=== PATIENT | female | born 1960 | race Caucasian/White ===

== ENCOUNTER → 2016-06-10 | Outpatient (CLI) | payer OTHER, BC ==
--- NOTE | 2016-06-10 19:55 | MR ---
EXAM DATE: 06/10/16 PATIENT'S AGE: 56 Patient: MARK SETH Facility: [place], [place] : 1960 Study: MRI Knee Left [id number]/10/2017 10:54:32 AM Ordering Physician: Carlyle Frost Final Report: HISTORY: Left knee pain. Technique: Axial, sagittal and coronal T1, proton density and proton density fat-saturated images were obtained of the left knee without contrast administration. Comparison: Radiographs 06/10/2016. Findings: Medial compartment: Medial meniscus: There is mild intrameniscal degeneration of the medial meniscal body and medial aspect of the posterior horn of meniscus without a discrete area of meniscal tearing. Articular cartilage: Mild marginal osteophyte formation. There is moderate to high-grade cartilage wear of the junction of the central and posterior aspects of the medial femoral condyle (grade 2-3). Mild cartilage wear of the medial tibial plateau (grade 2). . Lateral compartment: Lateral meniscus: There is mild intrameniscal degeneration of the lateral meniscus. The posterior horn of the lateral meniscus closer to the root of the meniscus may be frayed though that portion of the meniscus is difficult to evaluate by MRI as it is prone to magic-angle phenomenon artifact. Articular cartilage: Marginal osteophyte formation. High-grade partial to full- thickness cartilage wear involving the central posterior aspect of the lateral femoral condyle (grade 3-4). High-grade partial to full-thickness cartilage wear of the lateral tibial plateau with subchondral marrow edema (grade 3-4). . Patellofemoral compartment: Trochlear articular cartilage is maintained. Mild chondromalacia of the patellar articular surface (grade 2). . Ligaments: There is increased signal within and mild irregularity of the anterior cruciate ligament compatible with a low-grade sprain of the ligament. The posterior cruciate ligament is intact. Medial collateral ligament and lateral collateral ligamentous complex are maintained. . Extensor mechanism: The distal quadriceps tendon and patellar tendon are intact. Medial and lateral patellar restraints are intact. There is no patellar subluxation or jeb. . Joint space: Moderate size knee joint effusion. Mild synovitis. No intra- articular joint body. . Bones and soft tissues: There is no acute fracture. No avascular necrosis. Mild semimembranosus/MCL bursitis. Small ganglia associated with the distal semimembranosus at the tibial attachment. Anterior subcutaneous edema without anterior bursal fluid collection. Impression: 1. Tricompartmental cartilage wear and degenerative arthrosis, left knee. Highest grade cartilage loss within the lateral compartment and involving the junction of the central and posterior aspects of the medial femoral condyle. 2. Moderate knee joint effusion. 3. Meniscal degeneration. Possible degenerative fraying of the posterior horn of the lateral meniscus closer to the root of meniscus though that portion of the meniscus is prone to artifact. 4. Low-grade partial tearing of the anterior cruciate ligament. 5. Mild semimembranosus/MCL bursitis. Dictated by Jim Estrada MD @ Jun 10 2016 11:50AM (Electronic Signature) Report Signed by Proxy and Original Signed Document filed in the Medical Record. FRED
== END ==
LOC: MW.MRI 09:50
PROVIDERS: ATTEND Physician Assistant
DX: M25.562 Pain in left knee (principal); S83.512A Sprain of anterior cruciate ligament of left knee, initial encounter; M17.12 Unilateral primary osteoarthritis, left knee; M25.462 Effusion, left knee; M23.307 Other meniscus derangements, unspecified meniscus, left knee; M70.52 Other bursitis of knee, left knee
CPT/HCPCS: 73721-26-LT; 73721-LT

== ENCOUNTER 2016-09-03 19:20 | Emergency (ER) | payer BC, OTHER ==
[2016-09-03 19:32] VITALS: BP 121/82
[2016-09-03] MEDS ORDERED: Albuterol/Ipratropium 3.0-0.5 MG/3 ML Neb Soln NEB ONE (19:39)
--- NOTE | 2016-09-03 19:45 | EDM.PDOC ---
ED HPI GENERAL MEDICAL PROBLEM - General Chief Complaint: Respiratory Problem Stated Complaint: PT HAS FEVER AND COUGH Time Seen by Provider: 09/03/16 19:28 Source of Information: Reports: Patient History Limitations: Reports: No Limitations - History of Present Illness INITIAL COMMENTS - FREE TEXT/NARRATIVE: Presents reporting cough and fever. 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 Now over the last couple days she has had a nonstop cough with fever up to 101. She does not smoke and has no chronic medical problems. Treatments SHIPPING AND RECEIVING WEIGHER: Reports: Acetaminophen headache Pain Score (Numeric/FACES): 7 - Related Data Allergies Allergy/AdvReac Type Severity Reaction Status Date / Time No Known Allergies Allergy Verified 09/03/16 19:28 Home Meds: Home Meds Albuterol [IJD: Albuterol HFA] 2 puff .XX Q4HR PRN #1 inhaler 09/03/16 [Rx] Amoxicillin/Clavulanate K [Augmentin 875 MG/125 MG] 1 tab PO Q12HR #14 tablet [Rx] predniSONE [Prednisone] 2 tab PO DAILY #12 tablet 09/03/16 [Rx] Past Medical History MANAGER OFFICE History: Reports: Fibroids, Other (See Below) Other OB/BYN History: Ovarian Cysts - Past Surgical History GI Surgical History: Reports: Bariatric Procedure, Other (See Below) Musculoskeletal Surgical History: Reports: Other (See Below) Social & Family History - Family History Family Medical History: Noncontributory - Alcohol Use Days Per Week of Alcohol Use: 0 - Recreational Drug Use Recreational Drug Use: No ED ROS GENERAL - Review of Systems Review Of Systems: ROS reveals no pertinent complaints other than HPI. 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) Neurological: Alert, Oriented Psychiatric: Normal Affect, Normal Mood Skin Exam: Warm, Dry, Intact, Normal Color, No Rash Lymphatic: No Adenopathy Course - Vital Signs Last Recorded V/S: Last Vital Signs Temp 38.4 C H 09/03/16 19:28 Pulse 100 09/03/16 19:28 Resp 20 09/03/16 19:28 BP 121/82 09/03/16 19:28 Pulse Ox 96 09/03/16 19:28 - Orders/Labs/Meds Orders: Active Orders 24 hr Category Date Time Status RT Aerosol Therapy [RC] ASDIRECTED Care 09/03/16 19:39 Ordered Chest 2V [CR] Stat Exams 09/03/16 19:39 Ordered Albuterol/Ipratropium [DuoNeb 3.0-0.5 MG/3 ML] Med 09/03/16 19:39 Once 3 ml NEB ONETIME ONE Medication Orders Albuterol/Ipratropium (Duoneb 3.0-0.5 Mg/3 Ml) 3 ml NEB ONETIME ONE Stop: 09/03/16 19:40 Meds: Medications Generic Name Dose Route Start Last Admin Trade Name Freq PRN Reason Stop Dose Admin Albuterol/Ipratropium 3 ml 09/03/16 19:39 Duoneb 3.0-0.5 Mg/3 Ml NEB 09/03/16 19:40 ONETIME ONE Departure - Departure Time of Disposition: 20:19 Disposition: Home, Self-Care 01 Condition: good Clinical Impression: Bronchitis - Discharge Information Referrals: PCP,None [Primary Care Provider] - [facility] [Outside] [facility] [Outside] Forms: ED Department Discharge Additional Instructions: 1. Prednisone 2 tabs once daily for 6 days 2. Cheratussin with codeine cough syrup every 4 hours as needed for cough, no driving or operating machinery 3. Augmentin twice daily 4. inhaler 2 puffs every 4 hours as needed for cough or wheeze 5. drink plenty of fluids 6. followup with primary provider. Please establish one of the local clinics - My Orders Last 24 Hours: My Active Orders 09/03/16 19:39 RT Aerosol Therapy [RC] ASDIRECTED Chest 2V [CR] Stat Albuterol/Ipratropium [DuoNeb 3.0-0.5 MG/3 ML] 3 ml NEB ONETIME ONE - Assessment/Plan Last 24 Hours: My Active Orders 09/03/16 19:39 RT Aerosol Therapy [RC] ASDIRECTED Chest 2V [CR] Stat Albuterol/Ipratropium [DuoNeb 3.0-0.5 MG/3 ML] 3 ml NEB ONETIME ONE
--- NOTE | 2016-09-05 14:45 | CR ---
EXAM DATE: 09/03/16 PATIENT'S AGE: 56 Patient: MARK SETH Facility: [place], [place] Site . Site : 1960 Study: XRay Chest [id number]/3/2017 8:09:26 PM Ordering Physician: Doctor Nieto Final Report: INDICATION: Shortness of Breath, Cough TECHNIQUE: Chest 2 views. COMPARISON: None. FINDINGS: Cardiovascular and mediastinum: Heart size and vasculature are normal in caliber and appearance. Mediastinum is within normal limits. Lungs and pleural spaces: Lungs are clear. No sign of infiltrate or mass. No sign of pleural effusion. No pneumothorax. Bones and soft tissues: No significant findings. IMPRESSION: Unremarkable chest. Dictated by: Lex Almonte MD @ 09/03/2016 20:41:16 (Electronic Signature) Report Signed by Proxy. [facility]ON[facility] COMMUN[facility] HOSPITALAvril
== END 2016-09-03 20:51 | disposition home or self-care (01) ==
LOC: MW.ED 19:20
DX: J40 Bronchitis, not specified as acute or chronic (principal); Z98.84 Bariatric surgery status; Z79.899 Other long term (current) drug therapy
CPT/HCPCS: 71020; 71020-26; 94664; 99283